=== PATIENT | male | born 1945 | race Caucasian/White ===

== ENCOUNTER 2018-01-28 11:01 | Emergency (ER) | payer OTHER ==
[~2018-01-28] VITALS: Ht 165.1 cm; Wt 70.3 kg
[~2018-01-28 11:01] MED LIST: ADA60 PO; GLU850 PO; V2 PO
[2018-01-28 11:13] VITALS: Ht 165.1 cm; Wt 70.3 kg
[2018-01-28 12:46] VITALS: BP 147/73
== END 2018-01-28 12:46 | disposition home or self-care (01) ==
LOC: ED 11:01
DX: J06.9 Acute upper respiratory infection, unspecified (principal); I10 Essential (primary) hypertension; E11.9 Type 2 diabetes mellitus without complications; E78.00 Pure hypercholesterolemia, unspecified; Z98.890 Other specified postprocedural states
CPT/HCPCS: Q0092

== ENCOUNTER 2018-05-02 00:18 | Observation (INO) | payer OTHER ==
[~2018-05-02] VITALS: Ht 165.1 cm; Wt 73.5 kg
[2018-05-02 00:45] VITALS: Ht 165.1 cm; Wt 73.5 kg
[2018-05-02 02:19] LABS: BASOPHIL % 0.4 % (0-2); CALCIUM 9.4 mg/dL (8.5-10.1); CARBON DIOXIDE 23.6 mmol/L (21-32); CREATININE SERUM 1.3 mg/dL (0.7-1.3); PLATELET COUNT 288 x10^3mcL (130-400); POTASSIUM SERUM 4.3 mmol/L (3.5-5.1)
[2018-05-02 02:21] LABS: RED CELL DISTRIBUTION WIDTH 14.6 % (11.5-14.5)
[2018-05-02 02:24] LABS: BILIRUBIN TOTAL 0.49 mg/dL (0.20-1.00); TOTAL PROTEIN, SERUM 8.6 g/dL (6.4-8.2)
[2018-05-02 02:26] LABS: microscopic required? YES; urine erythrocyte 1+ (NEGATIVE)
[2018-05-02 11:45] VITALS: BP 154/49
[2018-05-02 12:14] VITALS: BP 110/59
[2018-05-02 12:56] VITALS: BP 110/59
[2018-05-02 17:27] VITALS: BP 149/67
[2018-05-02 22:00] VITALS: BP 148/55
[2018-05-03 06:33] VITALS: BP 110/59
[2018-05-03 06:57] LABS: CHOLESTEROL/HDL RATIO 3.2
[2018-05-03 11:09] VITALS: BP 162/70
[2018-05-03] MEDS ORDERED: PROTONIX40 MG PO ×2 (12:48→12:50)
[2018-05-03] MEDS ORDERED: CIPRO250 MG PO (12:48)
[2018-05-03 14:24] VITALS: BP 170/67
[2018-05-03 18:13] VITALS: BP 146/68
[2018-05-03 18:22] VITALS: BP 146/68
== END 2018-05-03 19:00 | disposition home or self-care (01) | DRG 381 ==
LOC: ED 00:18 → DU 09:42
PROVIDERS: Emergency Medicine; Internal Medicine; Internal Medicine Cardiovascular Disease; ADMIT Internal Medicine
PROC: 0DB68ZX Excision of Stomach, Via Natural or Artificial Opening Endoscopic, Diagnostic (ICD-10-PCS; 2018-05-03)
PROC: 0DB58ZX Excision of Esophagus, Via Natural or Artificial Opening Endoscopic, Diagnostic (ICD-10-PCS; principal; 2018-05-03 11:30)
DX: K22.70 Barrett's esophagus without dysplasia (principal); K22.10 Ulcer of esophagus without bleeding; N39.0 Urinary tract infection, site not specified; K21.9 Gastro-esophageal reflux disease without esophagitis; K29.70 Gastritis, unspecified, without bleeding; K44.9 Diaphragmatic hernia without obstruction or gangrene; K80.20 Calculus of gallbladder without cholecystitis without obstruction; K76.0 Fatty (change of) liver, not elsewhere classified; I10 Essential (primary) hypertension; E11.9 Type 2 diabetes mellitus without complications; E78.5 Hyperlipidemia, unspecified; Z79.84 Long term (current) use of oral hypoglycemic drugs; Z98.42 Cataract extraction status, left eye; Z98.41 Cataract extraction status, right eye; Z96.1 Presence of intraocular lens
CPT/HCPCS: 43235; 82962; A9500; G0378; J0696; J1200; J1610; J2250; J2270; J2310; J2405; J2785; J3010; J3490; J7030; Q0092

== ENCOUNTER 2018-07-06 23:57 | Inpatient (IN) | payer OTHER ==
[~2018-07-06] VITALS: Ht 165.1 cm; Wt 70.9 kg
[~2018-07-06 23:57] MED LIST changes: +CIPRO250 MG PO; +PROTONIX40 MG PO
[2018-07-07 00:33] LABS: BASOPHIL % 0.1 % (0-2); PLATELET COUNT 275 x10^3mcL (130-400)
[2018-07-07 00:39] LABS: RED CELL DISTRIBUTION WIDTH 14.7 % (11.5-14.5)
[2018-07-07 00:58] LABS: T3 TOTAL 0.91 ng/mL
[2018-07-07 01:01] LABS: ALBUMIN 3.8 g/dL (3.4-5.0); BILIRUBIN TOTAL 0.7 mg/dL (0.20-1.00); C REACTIVE PROTEIN 0.5 mg/dL (<=0.9); CALCIUM 8.7 mg/dL (8.5-10.1); CARBON DIOXIDE 17.9 mmol/L (21-32); CREATININE SERUM 3.2 mg/dL (0.7-1.3); FREE T4 0.91 ng/dL (0.76-1.46); FREE THYROXINE INDEX 2.3 ug/dL (1.4-4.5); T4(THYROXINE) 6.7 ug/dL (4.7-13.3)
[2018-07-07 01:02] LABS: CK-MB 1.5 ng/mL (0-3.6)
[2018-07-07 02:02] LABS: ERYTHROCYTE SED RATE 2 mm/hr (0-20)
[2018-07-07 03:48] LABS: CALCIUM 8.7 mg/dL (8.5-10.1); CARBON DIOXIDE 13.7 mmol/L (21-32); CREATININE SERUM 2.7 mg/dL (0.7-1.3)
[2018-07-07 04:31] LABS: UA SPECIFIC GRAVITY 1.025 (1.005-1.035); microscopic required? YES; urine erythrocyte 2+ (NEGATIVE)
[2018-07-07 04:41] LABS: POTASSIUM SERUM 7.2 mmol/L (3.5-5.1)
[2018-07-07 04:43] VITALS: BP 131/57
[2018-07-07] MEDS ORDERED: AMOXICILLIN500 M1 PO (05:09)
[2018-07-07] MEDS ORDERED: METFORMIN HCL1000 MG PO ×2 (05:09→10:51)
[2018-07-07 05:45] LABS: PLATELET COUNT 228 x10^3mcL (130-400); RED CELL DISTRIBUTION WIDTH 14.3 % (11.5-14.5)
[2018-07-07 05:55] LABS: BASOPHIL % 0 % (0-2)
[2018-07-07] MEDS ORDERED: METOPROLOL SUC200 M2 PO ×2 (05:55→10:50)
[2018-07-07] MEDS ORDERED: GOOD SENSE OMEP20 MG (05:55)
[2018-07-07] MEDS ORDERED: AMO500 (05:55)
[2018-07-07] MEDS ORDERED: CLARITHROMYCIN500 M1 PO ×2 (05:56→10:51)
[2018-07-07 06:04] LABS: CALCIUM 9.1 mg/dL (8.5-10.1); CARBON DIOXIDE 15.1 mmol/L (21-32); CREATININE SERUM 2.9 mg/dL (0.7-1.3)
[2018-07-07 06:14] LABS: POTASSIUM SERUM 7.7 mmol/L (3.5-5.1)
[2018-07-07 07:33] VITALS: Ht 165.1 cm; Wt 70.9 kg
[2018-07-07 07:40] VITALS: BP 146/62
[2018-07-07] MEDS ORDERED: AMARYL2 MG PO (10:49)
[2018-07-07] MEDS ORDERED: AMO500 PO (10:50)
[2018-07-07] MEDS ORDERED: OMEPRAZOLE20 M3 PO (10:52)
[2018-07-07] MEDS ORDERED: SPIRONOLACTONE50 MG PO (10:52)
[2018-07-07 11:49] LABS: CALCIUM 8.5 mg/dL (8.5-10.1); CARBON DIOXIDE 17.2 mmol/L (21-32); CREATININE SERUM 2.3 mg/dL (0.7-1.3)
[2018-07-07 11:50] LABS: POTASSIUM SERUM 6.7 mmol/L (3.5-5.1)
[2018-07-07 12:30] VITALS: BP 146/72
[2018-07-07 15:05] LABS: CALCIUM 8.2 mg/dL (8.5-10.1); CARBON DIOXIDE 17.6 mmol/L (21-32); CREATININE SERUM 2.2 mg/dL (0.7-1.3)
[2018-07-07 15:07] LABS: POTASSIUM SERUM 6.5 mmol/L (3.5-5.1)
[2018-07-07 16:15] LABS: CALCIUM 8.2 mg/dL (8.5-10.1); CARBON DIOXIDE 20.9 mmol/L (21-32); CREATININE SERUM 2.2 mg/dL (0.7-1.3)
[2018-07-07 16:29] LABS: POTASSIUM SERUM 6.1 mmol/L (3.5-5.1)
[2018-07-07 16:45] VITALS: BP 142/73
[2018-07-07 19:20] VITALS: BP 144/56
[2018-07-07 21:55] LABS: CALCIUM 8.7 mg/dL (8.5-10.1); CARBON DIOXIDE 21.7 mmol/L (21-32); CREATININE SERUM 2.1 mg/dL (0.7-1.3); POTASSIUM SERUM 4.9 mmol/L (3.5-5.1)
[2018-07-07 23:13] VITALS: BP 149/68
[2018-07-08 03:30] VITALS: BP 139/42
[2018-07-08 05:53] LABS: BASOPHIL % 0.4 % (0-2); PLATELET COUNT 234 x10^3mcL (130-400); RED CELL DISTRIBUTION WIDTH 14.3 % (11.5-14.5)
[2018-07-08 06:18] LABS: BILIRUBIN TOTAL 0.7 mg/dL (0.20-1.00); CARBON DIOXIDE 28.4 mmol/L (21-32); POTASSIUM SERUM 4.8 mmol/L (3.5-5.1); TOTAL PROTEIN, SERUM 6.6 g/dL (6.4-8.2)
[2018-07-08 06:19] LABS: ALBUMIN 3.1 g/dL (3.4-5.0)
[2018-07-08 11:06] VITALS: BP 177/83
[2018-07-08 13:25] VITALS: BP 185/77
[2018-07-08 14:21] VITALS: BP 158/57
[2018-07-08 16:43] VITALS: BP 156/76
[2018-07-08 21:03] VITALS: BP 159/71
[2018-07-09 08:10] LABS: BASOPHIL % 0.3 % (0-2); PLATELET COUNT 242 x10^3mcL (130-400); RED CELL DISTRIBUTION WIDTH 14.6 % (11.5-14.5)
[2018-07-09 08:28] LABS: CALCIUM 9.1 mg/dL (8.5-10.1); CARBON DIOXIDE 22.1 mmol/L (21-32); CREATININE SERUM 1.5 mg/dL (0.7-1.3); MAGNESIUM 1.7 mg/dL (1.8-2.4); POTASSIUM SERUM 5.2 mmol/L (3.5-5.1)
[2018-07-09 08:50] VITALS: BP 150/66
[2018-07-09 14:27] VITALS: BP 154/56
[2018-07-09 16:37] VITALS: BP 182/65
[2018-07-09 17:32] VITALS: BP 153/66
[2018-07-09 21:11] VITALS: BP 164/69
[2018-07-09 23:24] VITALS: BP 154/62
[2018-07-10] VITALS (7 sets, daily range): BP systolic 118–180; BP diastolic 50–91
[2018-07-10 00:05] LABS: CALCIUM 9.1 mg/dL (8.5-10.1); CARBON DIOXIDE 27.7 mmol/L (21-32); CREATININE SERUM 1.6 mg/dL (0.7-1.3); POTASSIUM SERUM 4.4 mmol/L (3.5-5.1)
[2018-07-10 06:56] LABS: CALCIUM 9.2 mg/dL (8.5-10.1); CARBON DIOXIDE 27.2 mmol/L (21-32); CREATININE SERUM 1.6 mg/dL (0.7-1.3); POTASSIUM SERUM 4.6 mmol/L (3.5-5.1)
[2018-07-10 07:03] LABS: BASOPHIL % 0.4 % (0-2); PLATELET COUNT 227 x10^3mcL (130-400); RED CELL DISTRIBUTION WIDTH 14.2 % (11.5-14.5)
[2018-07-11 00:23] VITALS: BP 113/51
[2018-07-11 04:28] VITALS: BP 106/46
[2018-07-11 06:40] LABS: CALCIUM 8.7 mg/dL (8.5-10.1); CARBON DIOXIDE 23.7 mmol/L (21-32); CREATININE SERUM 1.7 mg/dL (0.7-1.3); POTASSIUM SERUM 3.9 mmol/L (3.5-5.1)
[2018-07-11 07:54] VITALS: BP 119/55
[2018-07-11 11:48] VITALS: BP 138/72
[2018-07-11] MEDS ORDERED: METOPROLOL TART25 M1 PO (13:02)
[2018-07-11] MEDS ORDERED: NOR10 PO (13:02)
[2018-07-11] MEDS ORDERED: APR50 PO (13:02)
== END 2018-07-11 15:44 | disposition home or self-care (01) | DRG 683 ==
LOC: ED 23:57 → IC 07-07 02:01 → DU 07-07 02:01 → EDBEDREQ 07-07 02:06 → IC 07-07 04:00 → DU 07-08 13:12
PROVIDERS: Internal Medicine; Internal Medicine Nephrology; Specialist; ADMIT Internal Medicine Pulmonary Disease
DX: N17.9 Acute kidney failure, unspecified (principal); E87.1 Hypo-osmolality and hyponatremia; K56.7 Ileus, unspecified; K52.9 Noninfective gastroenteritis and colitis, unspecified; E87.5 Hyperkalemia; K21.9 Gastro-esophageal reflux disease without esophagitis; I12.9 Hypertensive chronic kidney disease with stage 1 through stage 4 chronic kidney disease, or unspecified chronic kidney disease; K80.20 Calculus of gallbladder without cholecystitis without obstruction; E11.22 Type 2 diabetes mellitus with diabetic chronic kidney disease; I44.1 Atrioventricular block, second degree; N18.9 Chronic kidney disease, unspecified; Z79.4 Long term (current) use of insulin; Z68.28 Body mass index [BMI] 28.0-28.9, adult; Z79.84 Long term (current) use of oral hypoglycemic drugs
CPT/HCPCS: 36600; 82962; 84439; 87046; 87046-59; J0360; J0610; J0694; J1815; J1885; J1940; J2405; J2543; J3010; J3475; J3490; J7030

== ENCOUNTER 2018-12-29 23:07 | Emergency (ER) | payer OTHER ==
[~2018-12-29] VITALS: Ht 165.1 cm; Wt 76.2 kg
[~2018-12-29 23:07] MED LIST changes: +AMARYL2 MG PO; +AMO500; +AMO500 PO; +AMOXICILLIN500 M1 PO; +APR50 PO; +CLARITHROMYCIN500 M1 PO; +GOOD SENSE OMEP20 MG; +METFORMIN HCL1000 MG PO; +METOPROLOL SUC200 M2 PO; +METOPROLOL TART25 M1 PO; +NOR10 PO; +OMEPRAZOLE20 M3 PO; +SPIRONOLACTONE50 MG PO
[2018-12-29 23:49] LABS: BASOPHIL % 0.5 % (0-2); PLATELET COUNT 325 x10^3mcL (130-400); RED CELL DISTRIBUTION WIDTH 13.9 % (11.5-14.5)
[2018-12-30 00:37] LABS: CALCIUM 8.4 mg/dL (8.5-10.1); CHLORIDE SERUM 100 mmol/L (98-107); CREATININE SERUM 1.8 mg/dL (0.7-1.3); GLUCOSE SERUM 121 mg/dL (74-106); POTASSIUM SERUM 4.4 mmol/L (3.5-5.1); SODIUM SERUM 134 mmol/L (136-145)
[2018-12-30 00:42] LABS: ALBUMIN 3.5 g/dL (3.4-5.0); ALKALINE PHOSPHATASE 85 U/L (46-116); ALT/SGPT 38 U/L (16-63); AST/SGOT 15 U/L (15-37); BILIRUBIN TOTAL 0.24 mg/dL (0.20-1.00); TOTAL PROTEIN, SERUM 7.9 g/dL (6.4-8.2)
[2018-12-30 02:08] VITALS: BP 169/65
== END 2018-12-30 02:08 | disposition home or self-care (01) ==
LOC: ED 23:07
PROVIDERS: Emergency Medicine
DX: I10 Essential (primary) hypertension (principal); E11.9 Type 2 diabetes mellitus without complications; E78.00 Pure hypercholesterolemia, unspecified; Z98.890 Other specified postprocedural states
CPT/HCPCS: J0360; Q0092

== ENCOUNTER 2019-01-19 15:13 | Inpatient (IN) | payer OTHER ==
[~2019-01-19] VITALS: Ht 165.1 cm; Wt 75.9 kg
[2019-01-19 16:56] LABS: BASOPHIL % 0.4 % (0-2); PLATELET COUNT 179 x10^3mcL (130-400)
[2019-01-19 17:23] LABS: CALCIUM 9.3 mg/dL (8.5-10.1); CARBON DIOXIDE 22.8 mmol/L (21-32); CHLORIDE SERUM 103 mmol/L (98-107); CREATININE SERUM 0.9 mg/dL (0.7-1.3); GLUCOSE SERUM 100 mg/dL (74-106); POTASSIUM SERUM 3.7 mmol/L (3.5-5.1); SODIUM SERUM 142 mmol/L (136-145)
[2019-01-19 17:30] LABS: ALBUMIN 3.9 g/dL (3.4-5.0); ALKALINE PHOSPHATASE 106 U/L (46-116); ALT/SGPT 25 U/L (16-63); AST/SGOT 19 U/L (15-37); TOTAL PROTEIN, SERUM 7.5 g/dL (6.4-8.2)
[2019-01-19] MEDS ORDERED: TOPROL XL50 MG PO (17:54)
[2019-01-19 21:15] VITALS: BP 194/72
[2019-01-19 21:19] VITALS: Ht 165.1 cm; Wt 75.9 kg
[2019-01-19 22:42] VITALS: BP 176/71
[2019-01-20 04:22] VITALS: BP 168/70
[2019-01-20 06:56] LABS: BASOPHIL % 0.5 % (0-2); PLATELET COUNT 184 x10^3mcL (130-400)
[2019-01-20 07:05] LABS: RED CELL DISTRIBUTION WIDTH 14.7 % (11.5-14.5)
[2019-01-20 07:29] LABS: ALKALINE PHOSPHATASE 83 U/L (46-116); ALT/SGPT 26 U/L (16-63); AST/SGOT 19 U/L (15-37); BILIRUBIN TOTAL 0.4 mg/dL (0.20-1.00); CALCIUM 8.8 mg/dL (8.5-10.1); CARBON DIOXIDE 24.4 mmol/L (21-32); CHLORIDE SERUM 104 mmol/L (98-107); CREATININE SERUM 1.4 mg/dL (0.7-1.3); GLUCOSE SERUM 138 mg/dL (74-106); POTASSIUM SERUM 4.2 mmol/L (3.5-5.1); SODIUM SERUM 139 mmol/L (136-145); TOTAL PROTEIN, SERUM 7.1 g/dL (6.4-8.2)
[2019-01-20 07:36] LABS: ALBUMIN 3.2 g/dL (3.4-5.0)
[2019-01-20 08:36] VITALS: BP 143/39
[2019-01-20 13:53] VITALS: BP 148/66
[2019-01-20 15:29] VITALS: BP 148/66
[2019-01-20 17:23] VITALS: BP 126/75
[2019-01-20 20:59] VITALS: BP 156/81
[2019-01-21 05:33] VITALS: BP 151/65
[2019-01-21 07:55] VITALS: BP 130/49
[2019-01-21 08:38] LABS: BASOPHIL % 0.8 % (0-2); PLATELET COUNT 205 x10^3mcL (130-400); RED CELL DISTRIBUTION WIDTH 14.5 % (11.5-14.5)
[2019-01-21 09:14] LABS: AST/SGOT 2 U/L (15-37); CHLORIDE SERUM 98 mmol/L (98-107); SODIUM SERUM 131 mmol/L (136-145)
[2019-01-21 09:34] LABS: ALBUMIN 3.6 g/dL (3.4-5.0); ALKALINE PHOSPHATASE 87 U/L (46-116); ALT/SGPT 32 U/L (16-63); BILIRUBIN TOTAL 0.57 mg/dL (0.20-1.00); CALCIUM 9.1 mg/dL (8.5-10.1); CARBON DIOXIDE 24.7 mmol/L (21-32); CREATININE SERUM 1.8 mg/dL (0.7-1.3); GLUCOSE SERUM 176 mg/dL (74-106); TOTAL PROTEIN, SERUM 7.7 g/dL (6.4-8.2)
[2019-01-21 12:58] VITALS: BP 179/66
[2019-01-21 14:45] VITALS: BP 174/72
== END 2019-01-21 15:40 | disposition short-term general hospital (02) | DRG 312 ==
LOC: ED 15:13 → DU 19:58
PROVIDERS: Emergency Medicine; Internal Medicine; ADMIT Internal Medicine
DX: I95.1 Orthostatic hypotension (principal); N17.9 Acute kidney failure, unspecified; I44.1 Atrioventricular block, second degree; I11.9 Hypertensive heart disease without heart failure; E11.9 Type 2 diabetes mellitus without complications; Z68.29 Body mass index [BMI] 29.0-29.9, adult; Z79.84 Long term (current) use of oral hypoglycemic drugs; Z86.73 Personal history of transient ischemic attack (TIA), and cerebral infarction without residual deficits
CPT/HCPCS: 82962; G0378; J0360; J1650; Q0092

== ENCOUNTER 2019-02-10 18:16 | Emergency (ER) | payer OTHER ==
[~2019-02-10] VITALS: Ht 165.1 cm; Wt 73.0 kg
[~2019-02-10 18:16] MED LIST changes: +TOPROL XL50 MG PO
[2019-02-10 18:21] VITALS: Ht 165.1 cm; Wt 73.0 kg
[2019-02-10 19:30] LABS: BASOPHIL % 0.6 % (0-2); PLATELET COUNT 232 x10^3mcL (130-400); RED CELL DISTRIBUTION WIDTH 14.9 % (11.5-14.5)
[2019-02-10 19:52] LABS: CALCIUM 8.7 mg/dL (8.5-10.1); CARBON DIOXIDE 25.1 mmol/L (21-32); CHLORIDE SERUM 98 mmol/L (98-107); CREATININE SERUM 1.6 mg/dL (0.7-1.3); GLUCOSE SERUM 144 mg/dL (74-106); POTASSIUM SERUM 5.2 mmol/L (3.5-5.1); SODIUM SERUM 132 mmol/L (136-145)
[2019-02-10 19:57] LABS: ALBUMIN 3.7 g/dL (3.4-5.0); ALKALINE PHOSPHATASE 94 U/L (46-116); ALT/SGPT 32 U/L (16-63); AST/SGOT 23 U/L (15-37); BILIRUBIN TOTAL 0.24 mg/dL (0.20-1.00); LIPASE 225 IU/L (73-393); TOTAL PROTEIN, SERUM 7.8 g/dL (6.4-8.2)
[2019-02-10 22:08] VITALS: BP 157/76
== END 2019-02-10 22:08 | disposition home or self-care (01) ==
LOC: ED 18:16
PROVIDERS: Emergency Medicine
DX: R07.89 Other chest pain (principal); I10 Essential (primary) hypertension; E11.9 Type 2 diabetes mellitus without complications; E78.00 Pure hypercholesterolemia, unspecified; Z95.0 Presence of cardiac pacemaker; Z98.890 Other specified postprocedural states
CPT/HCPCS: 36415; 83880; Q0092

== ENCOUNTER 2019-03-30 23:11 | Emergency (ER) | payer OTHER ==
[~2019-03-30] VITALS: Ht 165.1 cm; Wt 72.6 kg
[2019-03-30 23:44] VITALS: Ht 165.1 cm; Wt 72.6 kg
[2019-03-31 03:25] VITALS: BP 171/67
== END 2019-03-31 03:25 | disposition home or self-care (01) ==
LOC: ED 23:11
DX: R10.13 Epigastric pain (principal); R14.3 Flatulence; R14.0 Abdominal distension (gaseous); I10 Essential (primary) hypertension; E11.9 Type 2 diabetes mellitus without complications; E78.00 Pure hypercholesterolemia, unspecified

== ENCOUNTER 2019-10-26 02:59 | Emergency (ER) | payer OTHER ==
[~2019-10-26] VITALS: Ht 165.1 cm; Wt 75.3 kg
[2019-10-26 03:10] VITALS: Ht 165.1 cm; Wt 75.3 kg
[2019-10-26 04:44] LABS: BASOPHIL % 0.3 % (0-2); PLATELET COUNT 173 x10^3mcL (130-400); RED CELL DISTRIBUTION WIDTH 14.4 % (11.5-14.5)
[2019-10-26 05:33] LABS: ALBUMIN 3.6 g/dL (3.4-5.0); ALKALINE PHOSPHATASE 73 U/L (46-116); ALT/SGPT 27 U/L (16-63); AST/SGOT 26 U/L (15-37); BILIRUBIN TOTAL 0.3 mg/dL (0.20-1.00); CALCIUM 8.9 mg/dL (8.5-10.1); CARBON DIOXIDE 21.4 mmol/L (21-32); CHLORIDE SERUM 104 mmol/L (98-107); CREATININE SERUM 1.8 mg/dL (0.7-1.3); GLUCOSE SERUM 146 mg/dL (74-106); LIPASE 150 IU/L (73-393); SODIUM SERUM 133 mmol/L (136-145); TOTAL PROTEIN, SERUM 7.8 g/dL (6.4-8.2)
[2019-10-26 05:38] LABS: POTASSIUM SERUM 6.2 mmol/L (3.5-5.1)
[2019-10-26 09:05] LABS: CALCIUM 8.9 mg/dL (8.5-10.1); CARBON DIOXIDE 19.7 mmol/L (21-32); CHLORIDE SERUM 104 mmol/L (98-107); CREATININE SERUM 1.9 mg/dL (0.7-1.3); GLUCOSE SERUM 132 mg/dL (74-106); MAGNESIUM 2.2 mg/dL (1.8-2.4); SODIUM SERUM 135 mmol/L (136-145)
[2019-10-26 09:08] LABS: POTASSIUM SERUM 5.6 mmol/L (3.5-5.1)
[2019-10-26 10:53] VITALS: BP 172/74
== END 2019-10-26 10:53 | disposition home or self-care (01) ==
LOC: ED 02:59
PROVIDERS: Emergency Medicine
DX: K21.9 Gastro-esophageal reflux disease without esophagitis (principal); E87.5 Hyperkalemia; N17.9 Acute kidney failure, unspecified; I10 Essential (primary) hypertension; E11.9 Type 2 diabetes mellitus without complications; E78.00 Pure hypercholesterolemia, unspecified; Z95.0 Presence of cardiac pacemaker

== ENCOUNTER 2019-11-07 01:42 | Emergency (ER) | payer OTHER ==
[~2019-11-07] VITALS: Ht 165.1 cm; Wt 71.8 kg
[2019-11-07 01:50] VITALS: Ht 165.1 cm; Wt 71.8 kg
[2019-11-07 04:08] VITALS: BP 157/66
== END 2019-11-07 03:35 | disposition home or self-care (01) ==
LOC: ED 01:42
DX: K59.00 Constipation, unspecified (principal); R10.84 Generalized abdominal pain; E78.00 Pure hypercholesterolemia, unspecified; I10 Essential (primary) hypertension; E11.9 Type 2 diabetes mellitus without complications; Z95.0 Presence of cardiac pacemaker
CPT/HCPCS: J1885; Q0092

== ENCOUNTER 2019-11-13 04:25 | Emergency (ER) | payer OTHER ==
[~2019-11-13] VITALS: Ht 165.1 cm; Wt 85.7 kg
[2019-11-13 04:35] VITALS: Ht 165.1 cm; Wt 85.7 kg
[2019-11-13 05:52] LABS: CALCIUM 8.9 mg/dL (8.5-10.1); CARBON DIOXIDE 26.1 mmol/L (21-32); CHLORIDE SERUM 99 mmol/L (98-107); CREATININE SERUM 1.5 mg/dL (0.7-1.3); GLUCOSE SERUM 148 mg/dL (74-106); POTASSIUM SERUM 4.6 mmol/L (3.5-5.1); SODIUM SERUM 131 mmol/L (136-145)
[2019-11-13 05:57] LABS: ALBUMIN 3.5 g/dL (3.4-5.0); ALKALINE PHOSPHATASE 80 U/L (46-116); ALT/SGPT 29 U/L (16-63); AST/SGOT 20 U/L (15-37); BILIRUBIN TOTAL 0.4 mg/dL (0.20-1.00); LIPASE 97 IU/L (73-393); TOTAL PROTEIN, SERUM 7.8 g/dL (6.4-8.2)
[2019-11-13 06:31] LABS: BASOPHIL % 0.5 % (0-2); PLATELET COUNT 264 x10^3mcL (130-400)
[2019-11-13 09:45] VITALS: BP 164/63
== END 2019-11-13 09:45 | disposition home or self-care (01) ==
LOC: ED 04:25
PROVIDERS: Emergency Medicine
DX: K29.70 Gastritis, unspecified, without bleeding (principal); K80.20 Calculus of gallbladder without cholecystitis without obstruction; N20.0 Calculus of kidney; N17.9 Acute kidney failure, unspecified; I13.10 Hypertensive heart and chronic kidney disease without heart failure, with stage 1 through stage 4 chronic kidney disease, or unspecified chronic kidney disease; E11.22 Type 2 diabetes mellitus with diabetic chronic kidney disease; N18.9 Chronic kidney disease, unspecified; E78.00 Pure hypercholesterolemia, unspecified; Z98.890 Other specified postprocedural states; Z95.0 Presence of cardiac pacemaker
CPT/HCPCS: J2405; J7030; Q0092; Q9967